=== PATIENT | male | born 1965 | race Caucasian/White ===

== ENCOUNTER 2018-02-09 21:14 | Inpatient (IN) | payer OTHER ==
[~2018-02-09] VITALS: Ht 180.3 cm; Wt 93.4 kg
[2018-02-09] MEDS ORDERED: ASPIRIN 81 MG TAB.CHEW PO ONE (21:30)
--- NOTE | 2018-02-09 21:35 | EKG ---
[address] [address] Test Date: 2018-02-09 Test Time: 21:28:56 Pat Name: SARANYA VALADEZ Department: Room: Gender: M [employer] Supervisor: : 1965 Requested By: DAVID MICHAEL Order Number: [id number] Reading MD: Measurements Intervals [place] Rate: 61 P: -35 UT: 156 QRS: 72 QRSD: 142 T: 114 QT: 404 QTc: 408 Interpretive Statements SINUS RHYTHM LOW LIMB LEAD VOLTAGE RIGHT BUNDLE BRANCH BLOCK ABNORMAL ECG RI6.01 No previous ECG available for comparison
[2018-02-09 22:00] LABS: BASO % 1 % (0-3); EOS # 0.1 x10^3/uL (0.0-0.7); EOS % 1 % (0-3); HEMATOCRIT 40.6 % (39.0-53.0); LYMPH # 2.9 x10^3/uL (1.0-4.8); LYMPH % 34 % (24-48); MEAN CORPUSCULAR HEMOGLOBIN 28 pg (25-35); MEAN CORPUSCULAR HGB CONC 34 g/dL (31-37); MEAN CORPUSCULAR VOLUME 81 fL (79-100); MONO # 0.4 x10^3/uL (0.0-1.1); MONO % 5 % (0-9); NEUT # 5.1 x10^3uL (1.8-7.7); NEUT % 60 % (31-73); PLATELET COUNT 183 x10^3/uL (140-400); RED BLOOD COUNT 5.04 x10^6/uL (4.30-5.70); RED CELL DISTRIBUTION WIDTH 14.8 % (11.5-14.5); WHITE BLOOD COUNT 8.6 x10^3/uL (4.0-11.0)
[2018-02-09 22:13] LABS: ALBUMIN 3.9 g/dL (3.4-5.0); ALBUMIN/GLOBULIN RATIO 1.1 (1.0-1.7); CALCIUM 9.6 mg/dL (8.5-10.1); CREATININE 0.9 mg/dL (0.7-1.3); GFR 88.6; POTASSIUM 3.6 mmol/L (3.5-5.1); TOTAL BILIRUBIN 0.8 mg/dL (0.2-1.0); TOTAL PROTEIN 7.3 g/dL (6.4-8.2)
[2018-02-09] MEDS ORDERED: ONDANSETRON PF 4 MG/2 ML VIAL. IV PRN (23:00)
[2018-02-09] MEDS ORDERED: MORPHINE SULFATE 4 MG/ML DISP.SYRIN. IV PRN (23:00)
[2018-02-10 00:14] VITALS: BP 109/72
[2018-02-10] MEDS: IV NORMAL SALINE 1,000ML 1,000 ML IV SCH ×2 (00:33→08:40)
[2018-02-10] MEDS ORDERED: CLOP75TA57 PO (00:56)
[2018-02-10] MEDS ORDERED: FURO20TA3 PO (00:56)
[2018-02-10] MEDS ORDERED: ATOR40TA59 PO (00:56)
[2018-02-10] MEDS ORDERED: ASPI-630 PO (00:56)
[2018-02-10] MEDS ORDERED: METO-239 PO (00:56)
[2018-02-10] MEDS ORDERED: OMEP40CA5 PO (00:56)
[2018-02-10] MEDS ORDERED: NITR0.4T22 SL (00:57)
--- NOTE | 2018-02-10 03:08 | PHYS DOC ---
Past History Past Medical History: MD Past Surgical History: Other Alcohol Use: None Drug Use: None Adult General Chief Complaint Chief Complaint: CHEST PAIN HPI HPI 52-year-old male with a past medical history of prior tobacco abuse quit 4 years ago, high blood pressure high cholesterol, known history of coronary artery disease with a prior stent and prior angioplasty. Earlier tonight patient had onset of substernal chest pressure with nausea no shortness of breath or diaphoresis. Pain is now resolved. He was concerned it was his heart. Patient is currently in [facility] and was brought by guards for evaluation. Currently pain-free .aspirin given after arrival Review of Systems Review of Systems Constitutional: Denies fever or chills [] Eyes: Denies change in visual acuity, redness, or eye pain [] HENT: Denies nasal congestion or sore throat [] Respiratory: Denies cough or shortness of breath [] Cardiovascular: No additional information not addressed in HPI [] GI: Denies abdominal pain, nausea, vomiting, bloody stools or diarrhea [] : Denies dysuria or hematuria [] Musculoskeletal: Denies back pain or joint pain [] Integument: Denies rash or skin lesions [] Neurologic: Denies headache, focal weakness or sensory changes [] Endocrine: Denies polyuria or polydipsia [] All other systems were reviewed and found to be within normal limits, except as documented in this note. Current Medications Current Medications Current Medications Medications (Trade) Dose Ordered Sig/Pamela Start Time Stop Time Status Last Admin Dose Admin Aspirin (Children'S Aspirin) 324 mg 1X ONCE 02/09/18 21:30 02/09/18 22:36 DC 02/09/18 21:34 324 MG Physical Exam Physical Exam Constitutional: Well developed, well nourished, no acute distress, non-toxic appearance. [] HENT: Normocephalic, atraumatic, bilateral external ears normal, oropharynx moist, no oral exudates, nose normal. [] Eyes: PERRLA, EOMI, conjunctiva normal, no discharge. [] Neck: Normal range of motion, no tenderness, supple, no stridor. [] Cardiovascular:Heart rate regular rhythm, no murmur [] Lungs & Thorax: Bilateral breath sounds clear to auscultation [] Abdomen: Bowel sounds normal, soft, no tenderness, no masses, no pulsatile masses. [] Skin: Warm, dry, no erythema, no rash. [] Back: No tenderness, no CVA tenderness. [] Extremities: No tenderness, no cyanosis, no clubbing, ROM intact, no edema. [] Neurologic: Alert and oriented X 3, normal motor function, normal sensory function, no focal deficits noted. [] Psychologic: Affect normal, judgement normal, mood normal. [] Current Patient Data Vital Signs Vital Signs Date Time Temp Pulse Resp B/P (MAP) Pulse Ox O2 Delivery O2 Flow Rate FiO2 02/10/18 02:20 18 Room Air 02/10/18 00:14 97.8 64 109/72 (84) 98 Lab Results Laboratory Tests Test 02/09/18 21:32 White Blood Count 8.6 x10^3/uL (4.0-11.0) Red Blood Count 5.04 x10^6/uL (4.30-5.70) Hemoglobin 14.0 g/dL (13.0-17.5) Hematocrit 40.6 % (39.0-53.0) Mean Corpuscular Volume 81 fL (79-100) Mean Corpuscular Hemoglobin 28 pg (25-35) Mean Corpuscular Hemoglobin Concent 34 g/dL (31-37) Red Cell Distribution Width 14.8 % (11.5-14.5) H Platelet Count 183 x10^3/uL (140-400) Neutrophils (%) (Auto) 60 % (31-73) Lymphocytes (%) (Auto) 34 % (24-48) Monocytes (%) (Auto) 5 % (0-9) Eosinophils (%) (Auto) 1 % (0-3) Basophils (%) (Auto) 1 % (0-3) Neutrophils # (Auto) 5.1 x10^3uL (1.8-7.7) Lymphocytes # (Auto) 2.9 x10^3/uL (1.0-4.8) Monocytes # (Auto) 0.4 x10^3/uL (0.0-1.1) Eosinophils # (Auto) 0.1 x10^3/uL (0.0-0.7) Basophils # (Auto) 0.0 x10^3/uL (0.0-0.2) Sodium Level 144 mmol/L (136-145) Potassium Level 3.6 mmol/L (3.5-5.1) Chloride Level 105 mmol/L (98-107) Carbon Dioxide Level 31 mmol/L (21-32) Anion Gap 8 (6-14) Blood Urea Nitrogen 16 mg/dL (8-26) Creatinine 0.9 mg/dL (0.7-1.3) Estimated GFR (Cockcroft-Gault) 88.6 BUN/Creatinine Ratio 18 (6-20) Glucose Level 87 mg/dL (70-99) Calcium Level 9.6 mg/dL (8.5-10.1) Total Bilirubin 0.8 mg/dL (0.2-1.0) Aspartate Amino Transferase (AST) 16 U/L (15-37) Alanine Aminotransferase (ALT) 30 U/L (16-63) Alkaline Phosphatase 82 U/L (46-116) Troponin I Quantitative < 0.017 ng/mL (0-0.055) Total Protein 7.3 g/dL (6.4-8.2) Albumin 3.9 g/dL (3.4-5.0) Albumin/Globulin Ratio 1.1 (1.0-1.7) EKG EKG EKG with normal sinus rhythm. No tachycardia. Nonspecific ST and T-wave findings. No STEMI interpreted by me[] Radiology/Procedures Radiology/Procedures Chest x-ray with chronic changes no acute disease interpreted by me[] Course & Med Decision Making Course & Med Decision Making Pertinent Labs and Imaging studies reviewed. (See chart for details) Signs and symptoms consistent with chest pain a possible cardiac etiology in a patient with known coronary artery disease. Stable and pain-free. Aspirin given. Workup unremarkable. Discussed with Dr. Woods hospitalist on-call who is aware the history and findings accepts the patient for inpatient admission his service for full cardiac workup [] Dragon Disclaimer Dragon Disclaimer This electronic medical record was generated, in whole or in part, using a voice recognition dictation system. Departure Departure: Impression: Primary Impression: Chest pain Disposition: ADMITTED INPATIENT Condition: STABLE DAVID MICHAEL MD Feb 10, 2018 03:08
[2018-02-10 05:08] VITALS: BP 111/71
[2018-02-10] MEDS ORDERED: NITROGLYCERIN SUBLINGUAL 0.4 MG BOTTLE OF 25. SL PRN (05:30)
[2018-02-10] MEDS ORDERED: PANTOPRAZOLE 40 MG TABLET. PO SCH (07:30)
--- NOTE | 2018-02-10 07:56 | RAD ---
History: Chest pain AP view the chest was obtained at 2146 hours. Comparison: none The cardiomediastinal silhouette is normal. The pulmonary vasculature is normal. The lungs and pleural margins are clear. Impression: No evidence of an acute cardiopulmonary process.
[2018-02-10] MEDS ORDERED: METOPROLOL SUCC 24HR ER 25 MG TAB.ER.24H. PO SCH (09:00)
[2018-02-10] MEDS ORDERED: FUROSEMIDE 20 MG TABLET PO SCH (09:00)
[2018-02-10] MEDS ORDERED: CLOPIDOGREL BISULFATE 75 MG TABLET PO SCH (09:00)
[2018-02-10] MEDS ORDERED: ASPIRIN 81 MG TAB.CHEW PO SCH (09:00)
[2018-02-10 09:29] LABS: BASO % 1 % (0-3); EOS # 0.2 x10^3/uL (0.0-0.7); EOS % 2 % (0-3); HEMATOCRIT 38.6 % (39.0-53.0); HEMOGLOBIN 13.2 g/dL (13.0-17.5); LYMPH # 2.7 x10^3/uL (1.0-4.8); LYMPH % 40 % (24-48); MEAN CORPUSCULAR HEMOGLOBIN 28 pg (25-35); MEAN CORPUSCULAR HGB CONC 34 g/dL (31-37); MEAN CORPUSCULAR VOLUME 81 fL (79-100); MONO # 0.3 x10^3/uL (0.0-1.1); MONO % 5 % (0-9); NEUT # 3.6 x10^3uL (1.8-7.7); NEUT % 53 % (31-73); PLATELET COUNT 167 x10^3/uL (140-400); RED BLOOD COUNT 4.77 x10^6/uL (4.30-5.70); RED CELL DISTRIBUTION WIDTH 14.8 % (11.5-14.5); WHITE BLOOD COUNT 6.8 x10^3/uL (4.0-11.0)
[2018-02-10 09:42] LABS: CALCIUM 8.9 mg/dL (8.5-10.1); CREATININE 0.9 mg/dL (0.7-1.3); GFR 88.6; POTASSIUM 3.6 mmol/L (3.5-5.1)
[2018-02-10 10:48] VITALS: BP 111/74
--- NOTE | 2018-02-10 13:24 | PDOC2 ---
CONSULT Date of Admission DATE: 02/10/18 TIME: 13:24 Reason for Consult: Chest pain Referring Physician: Dr. Woods Chief Complaint Chest pain Source: Chart review, Patient Problem List Problems Medical Problems: (1) Chest pain Status: Acute History of Present Illness 52-year-old male with history of coronary artery disease s/p PCI/stent in 2016 presented complaining of left-sided chest pain not related to exertion or food intake. This was 7/10 severity when it started and is currently at 4/10 severity. He denied any orthopnea/PND, palpitations but complained of recurrent episodes of syncope, approximately 5 episodes in the last one month, not related to posture. Past Medical History Coronary artery disease s/p PCI/stent placement in 2016 Hypertension Hyperlipidemia Family History Positive for coronary artery disease Social History Patient is a nonsmoker and a nondrinker Drugs: None Current Medications Current Medications Aspirin (Children'S Aspirin) 324 mg 1X ONCE PO Last administered on 02/09/18at 21:34; Start 02/09/18 at 21:30; Stop 02/09/18 at 22:36; Status DC Ondansetron HCl (Zofran) 4 mg PRN Q4HRS PRN IV NAUSEA/VOMITING; Start 02/09/18 at 23:00; Stop 02/10/18 at 22:59 Morphine Sulfate (Morphine 4mg Syringe) 2 mg PRN Q2HR PRN IV PAIN Last administered on 02/10/18at 01:49; Start 02/09/18 at 23:00; Stop 02/10/18 at 22:59 Sodium Chloride 1,000 ml @ 125 mls/hr Q8H IV Last administered on 02/10/18at 08 :40; Start 02/09/18 at 23:00; Stop 02/10/18 at 22:59 Aspirin (Children'S Aspirin) 81 mg DAILY PO Last administered on 02/10/18at 08: 40; Start 02/10/18 at 09:00 Clopidogrel Bisulfate (Plavix) 75 mg DAILY PO Last administered on 02/10/18at 08 :40; Start 02/10/18 at 09:00 Furosemide (Lasix) 20 mg DAILY PO Last administered on 02/10/18at 08:40; Start 02/10/18 at 09:00 Metoprolol Succinate (Toprol Xl) 25 mg DAILY PO Last administered on 02/10/18at 08:56; Start 02/10/18 at 09:00 Nitroglycerin (Nitrostat) 0.4 mg PRN Q5MIN PRN SL CHEST PAIN; Start 02/10/18 at 05:30 Atorvastatin Calcium (Lipitor) 40 mg QHS PO ; Start 02/10/18 at 21:00 Pantoprazole Sodium (Protonix) 40 mg BIDBFRMEAL PO Last administered on at 08:40; Start 02/10/18 at 07:30 Active Scripts Active Reported NITROGLYCERIN SubLingual (Nitroglycerin) 0.4 Mg Tab.subl 0.4 Mg SL PRN Q5MIN PRN Aspirin 81 Mg Tab.chew 81 Mg PO DAILY Furosemide 20 Mg Tablet 20 Mg PO DAILY Atorvastatin Calcium 40 Mg Tablet 40 Mg PO QHS Metoprolol Succinate ( Xl ) (Metoprolol Succinate) 25 Mg Tab.er.24h 25 Mg PO DAILY Omeprazole 40 Mg Capsule.dr 40 Mg PO BID Plavix (Clopidogrel Bisulfate) 75 Mg Tablet 75 Mg PO DAILY Allergies: Coded Allergies: No Known Drug Allergies (Unverified , 02/10/18) PSYCHOLOGICAL ROS: No: Hallucinations Eyes: No: Loss of vision HEENT: No: Epistaxis Respiratory: No: Hemoptysis Cardiovascular: yes: Chest Pain Genitourinary: No: [place] Neurological: YES: Other (syncope), No: Seizures Skin: No: Rash General: Alert, Oriented X3 HEENT: Atraumatic, PERRLA Lungs: Clear to auscultation Heart: Regular rate Abdomen: Soft, No tenderness Extremities: No edema Neuro: Normal tone Psych/Mental Status: Mood NL VITALS Vital Signs Date Time Temp Pulse Resp B/P (MAP) Pulse Ox O2 Delivery O2 Flow Rate FiO2 02/10/18 10:48 97.8 58 20 111/74 (86) 97 Room Air Labs Laboratory Tests Test 02/09/18 21:32 02/10/18 03:15 02/10/18 08:58 White Blood Count 8.6 x10^3/uL (4.0-11.0) 6.8 x10^3/uL (4.0-11.0) Red Blood Count 5.04 x10^6/uL (4.30-5.70) 4.77 x10^6/uL (4.30-5.70) Hemoglobin 14.0 g/dL (13.0-17.5) 13.2 g/dL (13.0-17.5) Hematocrit 40.6 % (39.0-53.0) 38.6 % (39.0-53.0) Mean Corpuscular Volume 81 fL (79-100) 81 fL (79-100) Mean Corpuscular Hemoglobin 28 pg (25-35) 28 pg (25-35) Mean Corpuscular Hemoglobin Concent 34 g/dL (31-37) 34 g/dL (31-37) Red Cell Distribution Width 14.8 % (11.5-14.5) 14.8 % (11.5-14.5) Platelet Count 183 x10^3/uL (140-400) 167 x10^3/uL (140-400) Neutrophils (%) (Auto) 60 % (31-73) 53 % (31-73) Lymphocytes (%) (Auto) 34 % (24-48) 40 % (24-48) Monocytes (%) (Auto) 5 % (0-9) 5 % (0-9) Eosinophils (%) (Auto) 1 % (0-3) 2 % (0-3) Basophils (%) (Auto) 1 % (0-3) 1 % (0-3) Neutrophils # (Auto) 5.1 x10^3uL (1.8-7.7) 3.6 x10^3uL (1.8-7.7) Lymphocytes # (Auto) 2.9 x10^3/uL (1.0-4.8) 2.7 x10^3/uL (1.0-4.8) Monocytes # (Auto) 0.4 x10^3/uL (0.0-1.1) 0.3 x10^3/uL (0.0-1.1) Eosinophils # (Auto) 0.1 x10^3/uL (0.0-0.7) 0.2 x10^3/uL (0.0-0.7) Basophils # (Auto) 0.0 x10^3/uL (0.0-0.2) 0.0 x10^3/uL (0.0-0.2) Sodium Level 144 mmol/L (136-145) 144 mmol/L (136-145) Potassium Level 3.6 mmol/L (3.5-5.1) 3.6 mmol/L (3.5-5.1) Chloride Level 105 mmol/L (98-107) 106 mmol/L (98-107) Carbon Dioxide Level 31 mmol/L (21-32) 31 mmol/L (21-32) Anion Gap 8 (6-14) 7 (6-14) Blood Urea Nitrogen 16 mg/dL (8-26) 16 mg/dL (8-26) Creatinine 0.9 mg/dL (0.7-1.3) 0.9 mg/dL (0.7-1.3) Estimated GFR (Cockcroft-Gault) 88.6 88.6 BUN/Creatinine Ratio 18 (6-20) Glucose Level 87 mg/dL (70-99) 85 mg/dL (70-99) Calcium Level 9.6 mg/dL (8.5-10.1) 8.9 mg/dL (8.5-10.1) Total Bilirubin 0.8 mg/dL (0.2-1.0) Aspartate Amino Transf (AST/SGOT) 16 U/L (15-37) Alanine Aminotransferase (ALT/SGPT) 30 U/L (16-63) Alkaline Phosphatase 82 U/L (46-116) Troponin I Quantitative < 0.017 ng/mL (0-0.055) < 0.017 ng/mL (0-0.055) < 0.017 ng/mL (0-0.055) Total Protein 7.3 g/dL (6.4-8.2) Albumin 3.9 g/dL (3.4-5.0) Albumin/Globulin Ratio 1.1 (1.0-1.7) Assessment/Plan 1. Chest pain with atypical features: Myocardial infarction ruled out. Patient has had stent placement in 2016 but cardiac catheterization in February 2017 apparently showed patent stent without any significant stenosis. Plan for Lexiscan nuclear stress test as an outpatient. 2. Recurrent syncope: Uncertain etiology. He is presently in sinus rhythm. Telemetry did not show any significant arrhythmias. Plan for event monitor as an outpatient. 3. Hypertension: Controlled 4. Hyperlipidemia: Statins Thank you for your consultation Problems: JARRETT VIGIL MD Feb 10, 2018 13:24
--- NOTE | 2018-02-10 16:03 | SSS ---
ADMIT DATE: 02/10/2018 HISTORY OF PRESENT ILLNESS: The patient is a 52-year-old male patient who is an inmate at [facility], [place] with a complaint of left-sided chest pressure, he had some nausea. Denied any diaphoresis. By the time he arrived to the Emergency Room, the pain has resolved. On questioning him further, the pain is variable, not exertional in nature. Denied any nausea or vomiting. Denied any shortness of breath. He was evaluated in the Emergency Room. First set of cardiac enzyme was less than 0.017. There were no ST-T changes suggestive of ST segment elevation with depression. He was admitted to have 2 more sets of cardiac enzyme. Consult the Cardiology team. PAST MEDICAL HISTORY: Significant for hypertension, hyperlipidemia, coronary artery disease status post myocardial infarction. He apparently has percutaneous coronary intervention with stent deployment in [place]. PAST SURGICAL HISTORY: Significant for stent deployment. ALLERGIES: He has no known drug allergies. MEDICATIONS: He is currently on following medications: He is on Plavix 75 mg once a day, atorvastatin calcium 40 mg at bedtime. He is on metoprolol succinate 25 mg once a day, ____ mg once a day, furosemide 20 mg once a day, omeprazole 40 mg twice a day, nitroglycerin 0.4 mg sublingually every 5 minutes as needed for chest pain. FAMILY HISTORY: He has 4 brothers and 3 sisters, 2 sisters are older, one of them of pancreatic cancer, the other one is healthy. His father at age of 88 because of congestive heart failure secondary to ischemic cardiomyopathy. Mother at age 73 because of melanoma. SOCIAL HISTORY: He is , has no children. He quit smoking 4 years ago. He used to smoke a pack a day and smoked for 20 years. He does not drink alcohol or use any recreational drugs. He used to work for [employer] REVIEW OF SYSTEMS: The patient denied any blurring of vision, cataract, glaucoma or macular degeneration. Denied any earache, tinnitus or sensorineural deafness. Denied any nosebleeds, stuffy nose or postnasal drip. Denied any sore throat, sore tongue, toothache, hoarseness of voice or difficulty swallowing. He denied any hematemesis, melena or hematochezia. Denied any dysuria, frequency or hematuria. Denied any dizziness, lightheadedness, or vertigo. PHYSICAL EXAMINATION: GENERAL: On examining him, he looked well and was clearly in no apparent respiratory distress, pale, but no jaundice, cyanosis, or thyromegaly. No jugular venous distention. No limb edema. VITAL SIGNS: His heart rate was 58, blood pressure was 111/74, temperature was 97.8, respiratory rate 20, and oxygen saturation was 97%. HEAD, EYES, EARS, NOSE AND THROAT: Showed normocephalic, atraumatic. NECK: Supple. HEART: Showed normal first and second heart sounds with no gallop, rub or murmur. CHEST: Clear to auscultation. No crepitation or rhonchi. ABDOMEN: Distended, soft, nontender. No guarding or rigidity. No organomegaly. Hernial orifices intact. Bowel sounds normal. NEUROLOGIC: He was awake, alert, responding appropriately. Cranial nerves intact. EXTREMITIES: He moves extremities without difficulty, ambulates without assistance or assistive devices. LABORATORY DATA: Showed a serum sodium 144, potassium 3.6, chloride 106, bicarbonate 31, anion gap of 7, BUN 16, creatinine 0.9, estimated GFR was 88 mL per minute, his glucose was 85, calcium was 8.9. His white cell count was 6800, hemoglobin 13, hematocrit 39, MCV 81 and platelet count of 167,000. The patient has 3 sets of cardiac enzymes that were all negative, that were less than 0.017. ASSESSMENT AND PLAN: The patient was seen by the day camp counselor, who recommended an outpatient stress test, echocardiogram and event monitoring. He will be discharged to continue on his current medication. Arrangement will be made for him to have an echocardiogram, stress test and event monitor with the Cardiology Group of the choice. SHEELA CORONADO MD DR: MARIA GUADALUPE/tony JOB#: [id number] / [id number]
[2018-02-10] MEDS ORDERED: ATORVASTATIN CALCIUM 20 MG TABLET PO SCH (21:00)
== END 2018-02-10 15:20 | disposition home or self-care (01) | DRG 313 ==
LOC: EEVIPCON 21:14 → ER 21:14 → 1 SOUTH 22:57
PROVIDERS: ADMIT Internal Medicine; ATTEND Internal Medicine
DX: R07.89 Other chest pain (principal); I25.10 Atherosclerotic heart disease of native coronary artery without angina pectoris; E78.5 Hyperlipidemia, unspecified; I10 Essential (primary) hypertension; R55 Syncope and collapse; I25.2 Old myocardial infarction; Z80.0 Family history of malignant neoplasm of digestive organs; Z80.8 Family history of malignant neoplasm of other organs or systems; Z82.49 Family history of ischemic heart disease and other diseases of the circulatory system; Z87.891 Personal history of nicotine dependence; Z95.5 Presence of coronary angioplasty implant and graft
CPT/HCPCS: 36415; 71045; 80048; 80053; 84484; 85025; 87641; 93005; 96374; J2270; 99285-25; J7030